=== PATIENT | female | born 1990 | race Caucasian/White ===

== ENCOUNTER 2020-03-16 03:35 | Emergency (ER) | payer OTHER ==
[~2020-03-16] VITALS: Ht 172.7 cm; Wt 60.5 kg
[2020-03-16 03:36] VITALS: BP 132/82
[2020-03-16] MEDS ORDERED: DULC5TAB PO (03:54)
[2020-03-16] MEDS ORDERED: LEXA1TAB PO (03:54)
[2020-03-16 05:06] LABS: RSV AMPLIFICATION NEGATIVE (NEGATIVE)
--- NOTE | 2020-03-16 05:16 | REPVR ---
PROCEDURE INFORMATION: Exam: XR Chest, 1 View Exam date and time: 03/16/2020 4:48 AM Age: 29 years old Clinical indication: Cough TECHNIQUE: Imaging protocol: XR of the chest Views: 1 view. COMPARISON: No relevant prior studies available. FINDINGS: Lungs: Unremarkable. No consolidation. Pleural space: Unremarkable. No pleural effusion. No pneumothorax. Heart/Mediastinum: Unremarkable. No cardiomegaly. Bones/joints: Unremarkable. IMPRESSION: No acute findings. Electronically signed by: Lois Coleman On 03/16/2020 05:15:42 AM
== END 2020-03-16 05:23 | disposition home or self-care (01) ==
LOC: M ED 03:35
DX: J06.9 Acute upper respiratory infection, unspecified (principal); B34.9 Viral infection, unspecified

== ENCOUNTER 2021-12-28 03:51 | Emergency (ER) | payer OTHER ==
[~2021-12-28] VITALS: Ht 172.7 cm; Wt 61.4 kg
[~2021-12-28 03:51] MED LIST: DULC5TAB PO; LEXA1TAB PO
[2021-12-28 03:54] VITALS: BP 121/82
== END 2021-12-28 04:23 | disposition left against medical advice (07) ==
LOC: M ED 03:51
DX: Z53.21 Procedure and treatment not carried out due to patient leaving prior to being seen by health care provider (principal)

== ENCOUNTER → 2024-02-07 | Outpatient (REF) | payer OTHER ==
[2024-02-07 14:29] LABS: ALBUMIN 3.8 G/DL (3.2-5.2); ALKALINE PHOSPHATASE 61 U/L (35-104); ALT/SGPT 10 U/L (7.0-40); AST/SGOT 18 U/L (<34); BILIRUBIN,TOTAL 0.2 MG/DL (0.3-1.2); BLOOD UREA NITROGEN 8 MG/DL (9-23); CALCIUM LEVEL 9.9 MG/DL (8.5-10.1); CARBON DIOXIDE LEVEL 32 MMOL/L (20-31); CHLORIDE LEVEL 102 MMOL/L (98-107); CHOLESTEROL LEVEL 160 MG/DL (<200); CHOLESTEROL RISK RATIO 2.91 (<5); GLOMERULAR FILTRATION RATE > 60.0 (>60); GLUCOSE, FASTING 79 MG/DL (60-100); HDL CHOLESTEROL 54.8 MG/DL (>40); LDL CHOLESTEROL 91.8 MG/DL (<100); NON-HDL-C 105.2 MG/DL; POTASSIUM SERUM 5.1 MMOL/L (3.5-5.1); SODIUM LEVEL 141 MMOL/L (136-145); TOTAL PROTEIN 7.5 G/DL (5.7-8.2); TRIGLYCERIDES LEVEL 67 MG/DL (<150)
[2024-02-07 14:31] LABS: THYROID STIMULATING HORMONE 2.386 uIU/ML (0.55-4.78); TOTAL 25(OH) VITAMIN D 25.4 NG/ML (20.0-100.0)
== END ==
LOC: M LAB REF 13:12
PROVIDERS: ATTEND Physician Assistant
DX: E55.9 Vitamin D deficiency, unspecified (principal); Z13.29 Encounter for screening for other suspected endocrine disorder; Z13.220 Encounter for screening for lipoid disorders